=== PATIENT | female | born 1985 | race Hispanic/Latino ===

== ENCOUNTER 2016-12-04 09:08 | Emergency (ER) | payer SELFPAY ==
[2016-12-04 09:30] VITALS: BP 130/74
[2016-12-04 11:33] LABS: Bilirubin,Urine NEG (Negative); Blood,Urine NEG (Negative); Ketones,Urine NEG (Negative); Leukocyte Esterase,Urine LG (Negative); Mucus,Urine 1+ /HPF; Nitrite,Urine NEG (Negative); Urobilinogen,Urine < 2.0 mg/dL (<2.0)
[2016-12-04] MEDS ORDERED: TORADOL IM ONE (12:01)
[2016-12-04] MEDS ORDERED: FLEXERIL PO ONE (12:02)
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
== END 2016-12-04 12:37 | disposition home or self-care (01) ==
LOC: ED 09:08
DX: M54.5 Low back pain (principal); I10 Essential (primary) hypertension; F17.210 Nicotine dependence, cigarettes, uncomplicated
CPT/HCPCS: 81001; 96372; 99283; J1885